=== PATIENT | male | born 1995 ===

== ENCOUNTER 2021-03-27 18:10 | Emergency (ER) | payer SELFPAY ==
[~2021-03-27] VITALS: Ht 170.2 cm; Wt 90.9 kg
[2021-03-27 18:24] VITALS: BP 168/108
[2021-03-27] MEDS ORDERED: ERYT1OIN6 EACHEYE (20:05)
[2021-03-27] MEDS ORDERED: proparacaine 0.5% ophthalmic drops 15ml EACHEYE ONE (20:05)
== END 2021-03-27 20:21 | disposition home or self-care (01) ==
LOC: ER 18:11
DX: S05.00XA Injury of conjunctiva and corneal abrasion without foreign body, unspecified eye, initial encounter (principal); Z79.2 Long term (current) use of antibiotics; X58.XXXA Exposure to other specified factors, initial encounter; Y93.89 Activity, other specified; Y92.89 Other specified places as the place of occurrence of the external cause; Y99.8 Other external cause status
CPT/HCPCS: 99283